=== PATIENT | female | born 1965 | race Caucasian/White ===

== ENCOUNTER 2016-12-19 13:17 | Outpatient (CLI) | payer BC ==
[2016-06-30 21:05] VITALS: BP 130/85
[~2016-12-19 13:17] MED LIST: BUPIVACAINE HCL/PF 2.5 MG/ML 10ML VIAL IV ONE; Lidocaine 1% 5ml(IM or SUTURE)(PAIN CLINIC) ONE; TRIAMCINOLONE ACETONID 40MG/ML VIAL ONE
--- NOTE | 2016-12-21 11:50 | HISTORY AND PHYSICAL REPORT ---
REFERRING PHYSICIAN: Dr. Kindra Florian Dear Dr. Florian: HISTORY OF PRESENT ILLNESS: I had the opportunity of seeing Lima Turk today as an outpatient at [facility]. As you are aware, Lima is a delightful 51-year-old white female who presents with a chief complaint of bilateral knee pain. She said she has had bad knees most of her adult life and she has had bilateral knee arthroscopies and partial meniscectomies and that at some point she was told that her knees were bone on bone and she needed knee joint replacement. She presents today seeking a second opinion and possible alternatives to surgical intervention. She denies that the knees are unstable. She says that she can climb up steps but she has pain going down steps. She has been nonsteroidal antiinflammatories for years but because of gastritis, she has had to stop the nonsteroidal antiinflammatories and says her joint pain has gotten worse. She has had arthrodesis of the right wrist as well in the past which was successful. She says that the left knee hurts somewhat worse than the right but they are both painful and limiting. She works at [employer] and spends a good deal of time on her feet in steel-toed boots. PAST MEDICAL HISTORY: 1. History of urinary incontinence. 2. Depression and anxiety. 3. Frequent headaches. 4. Thyroid disease. 5. GERD. 6. Osteoarthritis. PAST SURGICAL HISTORY: 1. Tubal ligation in 1985. 2. Partial thyroidectomy in . 3. Bilateral knee arthroscopy in 2005. 4. She had joints removed from bilateral thumbs in . CURRENT DAILY MEDICATIONS: 1. Effexor 175 mg daily. 2. Levothyroxine 0.2 mcg daily. 3. Omeprazole 20 mg daily. 4. Melatonin 10 mg at bedtime. ALLERGIES: 1. Sulfa causing a rash. 2. Codeine causing a rash. SOCIAL HISTORY: She is a former 2-pack per day smoker. She quit smoking 11 years ago. Unknown alcohol use. Denies recreational drugs. She has been for the last 13 years. She has 2 children. She lives at home with her spouse, step-son , and grandson. She completed the 12th grade. 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 She is currently employed. She is not disabled. FAMILY HISTORY: Family history includes a mother with pain problems. REVIEW OF SYSTEMS: In the last month or so, she reports a weight loss, night sweats, hoarse voice, swelling in hands or feet, urinary incontinence, stomach pain or upset stomach, constipation. Pain is worsened with lying down, standing, sitting, walking, twisting, getting up from a chair, sexual activity, changes in weather, cold, heat, driving, touch, and gradually worsens as the day progresses, getting up in the morning, or in any position for too long. Pain is improved with alternating sitting and walking. PHYSICAL EXAMINATION: General: This is a thin white female in no apparent distress. Vital Signs: BP: 110/70, P: 66, R: 20, oxygen saturation 98% on room air. HEENT: Pupils are equal, round, and reactive to light and accommodation. Extraocular movements intact. No facial droop. Neck: There is full range of motion of the cervical spine. No evidence of adenopathy. Thyroid is nontender, no enlarged. Carotids are without bruits. Chest: Clear to auscultation bilaterally. Normal. Chest excursion. Heart: Regular rate and rhythm without murmur. Abdomen: Benign. Normoactive bowel sounds. Motor/sensory: Intact in the upper and lower extremities. Moves all extremities freely. Knees: There is no evidence of instability. Negative Drawer sign on the left and right knees. There is some slight swelling bilaterally in the medial knee compartments. There is no evidence of prepatellar bursitis. There is a negative Apley test bilaterally. Strength is 5/5 and equal in lower extremities. Back: There are normal cervical, thoracic and lumbar curvatures. There are negative sacroiliac joint findings bilaterally. No evidence of pain or tenderness over the facet joints. Negative piriformis bilaterally. Negative straight leg raise. No evidence of dermatomal weakness or numbness in the lower extremities. Bilateral negative femoral nerve stretch. Patellar tendons are 2+ and equal bilaterally. DIAGNOSTIC STUDIES: X-ray exam reveals some left medial compartment meniscal narrowing; however, supine x-rays do not reveal bone on bone and to the contrary revealed preserved meniscus primarily of the right knee, possibly preserved on the left as well. PLAN: At this point, I have discussed possible therapies including a steroid injection of the knees and Synvisc-One injection for osteoarthritis of the knees , and I have also talked to her about bone marrow aspirate concentrate/stem cell therapy, which has been very successful for chronic knee pain, and I think this nice lady would be a good candidate. At this point, we will plan on bilateral knee joint steroid injection and have her follow up with me in a month. Dr. Florian, thank you so much for allowing me to take part in the care of this nice lady. cc: Dr. Kindra AGARWAL
--- NOTE | 2016-12-21 11:56 | KNEE INJECTION WITH FLUORO ---
REFERRING PHYSICIAN: Dr. Kindra Florian PROCEDURE: Bilateral knee joint steroid injection with fluoroscopy. DESCRIPTION OF PROCEDURE: The risks and benefits of the injection were discussed with the patient, including the risks of infection, bleeding, and nerve injury. Furthermore, I discussed the risk of steroid exposure causing hyperglycemia, hypertension, osteoporosis, or increased infectious risks. The patient understood these risks and agreed to proceed. Consent was obtained. The patient was placed in the supine position on the fluoroscopy table with the knees slightly flexed. The left knee was prepared. AP and oblique fluoroscopic viewing was used for visualizing the knee joint. A 22-gauge 3.5 spinal needle was introduced into the joint space from an anteromedial approach under direct fluoroscopic guidance. It was verified that there was no aspiration of fluid or blood. Triamcinolone acetate and 0.25% bupivacaine mixed with 1% Lidocaine was subsequently injected into the joint space. The stylette was replaced into the needle and the needle was withdrawn from the knee. The skin was cleaned. This exact procedure was repeated at the opposite knee joint. The patient tolerated the injection without complications. A Band-Aid was placed over the injection site (s). The patient was monitored for 20 minutes following the procedure. Vital signs remained stable throughout this period. ASSESSMENT: Degenerative Joint disease affecting the knees. PLAN: Bilateral knee joint steroid injection with fluoroscopic guidance. FOLLOW UP: Return to clinic if problems develop or worsen. cc: Dr. Kindra AGARWAL
== END 2016-12-19 13:20 ==
LOC: OUT 13:17
PROVIDERS: ATTEND Anesthesiology Pain Medicine
DX: M17.0 Bilateral primary osteoarthritis of knee (principal)
CPT/HCPCS: J3301; J3490; 20610; 99213

== ENCOUNTER 2017-02-20 07:56 | Outpatient (CLI) | payer BC ==
[2016-06-30 21:05] VITALS: BP 130/85
--- NOTE | 2017-02-20 09:58 | KNEE INJECTION WITH FLUORO ---
SUBJECTIVE: Ms. Turk comes in today to see me with a history of degenerative joint disease of bilateral knees and osteoarthritis, which runs in her family. Apparently, the hospital here will not provide Synvisc-One for her knees, even though I understand that this is a covered medication in hospital facilities. We therefore elected to put steroid injections in her knees today and I did speak to her about bone marrow aspirate concentrate grafting to her knees, which I think would work very well. There is cost concerns on the patient's side for having this done. At this point, we are going to plan on placing bilateral knee joint steroid injections under fluoroscopic guidance. PROCEDURE: Bilateral knee joint injection under fluoroscopic guidance. DESCRIPTION OF PROCEDURE: The risks and benefits of the injection were discussed with the patient, including the risks of infection, bleeding, and nerve injury. Furthermore, I discussed the risk of steroid exposure causing hyperglycemia, hypertension, osteoporosis, or increased infectious risks. The patient understood these risks and agreed to proceed. Consent was obtained. The patient was placed in the supine position on the fluoroscopy table with the knees slightly flexed. The left knee was prepared.. AP and oblique fluoroscopic viewing was used for visualizing the knee joint. A 22-gauge, 3.5 spinal needle was introduced into the joint space from an anteromedial approach under direct fluoroscopic guidance. It was verified that there was no aspiration of fluid or blood. Triamcinolone acetate was diluted in 0.25% bupivacaine and was subsequently injected into the joint space. The stylette was replaced into the needle and the needle was withdrawn from the knee. The skin was cleaned. This exact same procedure was repeated at the opposite knee joint. The patient tolerated the injection without complications. A band-aid was placed over the injection sites. The patient was monitored for 20 minutes following the procedure. Vital signs remained stable throughout this period. The patient reported a pattern of light touch sensory loss in the distribution of the ilioinguinal nerve. No significant motor loss was noted. ASSESSMENT: Degenerative joint disease affecting the knee. PLAN: Bilateral knee joint injection under fluoroscopic guidance. FOLLOW UP: Return to clinic if problems develop or worsen. cc: Dr. Kindra AGARWAL
== END 2017-02-20 07:58 ==
LOC: OUT 07:56
PROVIDERS: ATTEND Anesthesiology Pain Medicine
DX: M17.0 Bilateral primary osteoarthritis of knee (principal); M25.561 Pain in right knee; M25.562 Pain in left knee
CPT/HCPCS: 20610; 99213; 99214; J3301; J3490

== ENCOUNTER 2017-03-24 12:10 | Outpatient (CLI) | payer BC ==
[2016-06-30 21:05] VITALS: BP 130/85
[~2017-03-24 12:10] MED LIST changes: -BUPIVACAINE HCL/PF 2.5 MG/ML 10ML VIAL IV ONE; -Lidocaine 1% 5ml(IM or SUTURE)(PAIN CLINIC) ONE; -TRIAMCINOLONE ACETONID 40MG/ML VIAL ONE; +[UNRECOGNIZED DRUG - OTHER] IU ONE
--- NOTE | 2017-03-27 11:43 | KNEE INJECTION WITH FLUORO ---
SUBJECTIVE: Lima presents with bilateral knee pain. She did well initially with a steroid injection x2, but the injections are not controlling her osteoarthritis of her knees. She presents today for right knee Gel-One injection as dictated by her insurance company. I have recommended Synvisc-One and the Gel-One is their replacement product. I have explained the risks and benefits and we will proceed with an injection of Gel-One Hyaluronate. PROCEDURE: Gel-One Hyaluronate right knee joint injection with fluoroscopy. DESCRIPTION OF PROCEDURE: The risks and benefits of the injection were discussed with the patient, including the risks of infection, bleeding, and nerve injury. The patient understood these risks and agreed to proceed. Consent was obtained. The patient was placed in the supine position on the fluoroscopy table and sterile prep and drape were applied. Under fluoroscopic imaging, the knee joint was identified and just lateral to the inferior patellar tendon, a number 23-gauge needle was advanced into the right knee and verified fluoroscopically. Following this, 3 mL of Gel-One was placed in the right knee without complications. The patient tolerated the procedure well. A band-aid was placed over the injection site. The patient was discharged home in good condition. PLAN: Gel-One Hyaluronate right knee joint injection with fluoroscopy. Consider left knee Gel-One next month if we have a good response. I also discussed bone marrow stem cell (BMAC) therapy for bilateral knees. STEFANO
== END 2017-03-24 12:11 ==
LOC: OUT 12:10
PROVIDERS: ATTEND Anesthesiology Pain Medicine
DX: M17.0 Bilateral primary osteoarthritis of knee (principal)
CPT/HCPCS: 20610; 99213

== ENCOUNTER 2017-11-17 10:54 | Outpatient (CLI) | payer BC ==
[2016-06-30 21:05] VITALS: BP 130/85
[2017-11-17 11:13] LABS: eGFR (African) > 60; eGFR (Non-African) > 60
== END 2017-11-17 11:23 ==
LOC: LABRHC 10:54
PROVIDERS: ATTEND Physician Assistant
DX: Z00.00 Encounter for general adult medical examination without abnormal findings (principal); Z51.81 Encounter for therapeutic drug level monitoring; E89.0 Postprocedural hypothyroidism
CPT/HCPCS: 80053; 84439; 84443; 84481

== ENCOUNTER 2017-12-26 12:57 | Outpatient (CLI) | payer BC ==
[2016-06-30 21:05] VITALS: BP 130/85
[2017-12-26 13:35] LABS: BASOPHILS % 0.9 (0.0-1.5); EOSINOPHILS % 3.1 % (0.0-6.8); MEAN CORPUSCULAR HEMOGLOBIN 32.4 pg (28.0-34.0); MONOCYTES % 3.5 % (0.0-11.0); NEUTROPHILS # 3.1 # k/uL (1.4-7.7)
[2017-12-26 13:36] LABS: APPEARANCE,URINE Clear (CLEAR); COLOR,URINE Yellow (YELLOW); OCCULT BLOOD,URINE Negative (NEGATIVE); UROBILINOGEN URINE 0.2 Eu (0.2-1.0)
[2017-12-26 14:27] LABS: eGFR (Non-African) > 60
--- NOTE | 2017-12-26 15:25 | Diagnostic Imaging Report ---
MARIBELL THRASHER [facility] [address] [facility] [address] Report Submission Date: Dec 26, 2017 1:56:28 PM CDT Patient Study Name: MARIAM MAURO Date: Dec 26, 2017 1:21:47 PM CDT Modality Type: DX Gender: F Description: LOWER EXTREMITY : 61 Institution: [facility] Physician: MARIBELL THRASHER Examination: Plain film right knee History: OSTEOARTHRITIS (Hx) Findings: 3 views of the right knee demonstrates tibial spine and patellar spurring. Medial joint space narrowing. No fracture. No dislocation. Joint effusion. No soft tissue irregularity. Impression: Articular degenerative changes and joint effusion. Electronically signed on Dec 26, 2017 1:56:28 PM CDT by: Tone AGARWAL
--- NOTE | 2017-12-26 15:26 | Diagnostic Imaging Report ---
MARIBELL THRASHER [facility] [address] [facility] [address] Report Submission Date: Dec 26, 2017 1:57:16 PM CDT Patient Study Name: MARIAM MAURO Date: Dec 26, 2017 1:24:38 PM CDT Modality Type: DX Gender: F Description: LOWER EXTREMITY : 61 Institution: [facility] Physician: MARIBELL THRASHER Examination: Plain film left knee History: OSTEOARTHRITIS (Hx) Findings: 3 views of the left knee demonstrates tibial spine and patellar spurring. Medial joint space narrowing. No fracture. No dislocation. No joint effusion. No soft tissue irregularity. Impression: Articular degenerative changes. Electronically signed on Dec 26, 2017 1:57:16 PM CDT by: Tone AGARWAL
== END 2017-12-26 13:00 ==
LOC: LAB 12:57
PROVIDERS: ATTEND Orthopaedic Surgery Adult Reconstructive Orthopaedic Surgery
DX: M17.12 Unilateral primary osteoarthritis, left knee (principal); M17.11 Unilateral primary osteoarthritis, right knee; Z01.818 Encounter for other preprocedural examination; Z79.01 Long term (current) use of anticoagulants; R53.83 Other fatigue; K90.9 Intestinal malabsorption, unspecified
CPT/HCPCS: 36415; 73562; 80053; 81002; 82306; 84443; 85025; 85610; 85651; 85730; 87081